=== PATIENT | female | born 1940 | race Caucasian/White ===

== ENCOUNTER → 2018-10-29 | Outpatient (CLI) | payer OTHER ==
[~2018-10-29] MED LIST: IOHEXOL 300 mgI/ML (OMNIPAQUE) 150 ML BTL IV ONE
== END ==
LOC: FIMAGING 10:30
PROVIDERS: ATTEND Internal Medicine
DX: R18.0 Malignant ascites (principal)
CPT/HCPCS: 74177; Q9967; 82565-PO

== ENCOUNTER 2018-11-04 16:48 | Inpatient (IN) | payer OTHER ==
[2018-11-04] MEDS ORDERED: ACETAMINOPHEN 325 MG TAB PO PRN (17:37)
[2018-11-04] MEDS ORDERED: ONDANSETRON DISINTEGRATING 4 MG TAB PO PRN (17:37)
[2018-11-04] MEDS ORDERED: POLYETHYLENE GLYCOL 3350 17 GM PKT PO PRN (18:36)
[2018-11-04] MEDS ORDERED: MAGNESIUM HYDROXIDE 30 ML UDCUP PO PRN (18:36)
[2018-11-04] MEDS ORDERED: LACTULOSE 20 GM/30 ML UDCUP PO PRN (18:36)
[2018-11-04] MEDS ORDERED: BISACODYL 10 MG SUPP PR PRN (18:36)
[2018-11-04] MEDS ORDERED: NS 1,000 ML IV SCH (18:45)
[2018-11-04 18:51] LABS: PLATELET COUNT 385 10^3/uL (150-400)
[2018-11-04 19:00] LABS: INR 0.98 (0.83-1.16); PROTIME(PATIENT) 13.2 SEC (12.0-15.0)
[2018-11-04] MEDS ORDERED: DIAZEPAM 2 MG TAB PO PRN (19:50)
--- NOTE | 2018-11-04 20:00 | PDGENHP ---
History and Physical - Chief Complaint Abdominal distention - History of Present Illness HPI: This is a 78 y/o female with hx of recent diagnosis of ovarian CA w/ involvement of peritoneum presenting as a direct admit from Dr. Cortez's ( oncologist) office for therapeutic paracentesis. 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 After d/c, she f/u'ed with GI Dr. Doss who informed her of the cytology results and she f/u'ed with Dr. Cortez as outpatient who then sent her to be admitted for therapeutic paracentesis. Her abdomen is distended, she is in a great deal of discomfort rating it 20/10. She has not had a BM in 4 days but when she did have a BM, it was "stringy, squiggly." She has difficulty urinating, has to lift her abdomen to urinate. No dysuria. Endorses nausea, no vomiting. Denies SOB or chest pains. She does have occasional palpitations. She is being admitted for management. Past Medical History 1. Hyperlipidemia 2. Hypertension 3. Dx of ovarian CA w/ involvement of peritoneum 4, Macular degeneration 5. PAD 6. Thyroid cyst 7. Thyroid disease Social: Former smoker. No illegal drugs. Drinks a couple glasses of wine/ month. Lives independently in [place]. History Information - Allergies/Home Medication List Allergies/Adverse Reactions: formaldehyde Allergy (Verified 11/04/18 18:31) Iodinated Contrast- Oral and IV Dye Allergy (Verified 11/04/18 18:34) iohexol [From Omnipaque] Allergy (Verified 11/04/18 18:32) phenol [From Chloraseptic] Allergy (Verified 11/04/18 18:33) Sulfa (Sulfonamide Antibiotics) Allergy (Verified 11/04/18 18:31) Home Medications: Aspirin [Aspirin 81mg (*)] 81 mg PO DAILY 11/04/18 [Last Taken 11/04/18] C/E/Zn/Cu/OM3/DHA/EPA/LUT/ZEAX [Preservision Areds 2 Softgel] 1 each PO BID [Last Taken 11/04/18 09:00] Calcium Carb W/Vit D [Calcium Carb W/Vit D 500/200 (*)] 500 mg PO BID 11/04/18 [ Last Taken 11/04/18] Clopidogrel Bisulfate [Plavix (*)] 75 mg PO DAILY 11/04/18 [Last Taken 11/04/18] Diazepam [Valium 2 MG (*)] 2 mg PO DAILY PRN 11/04/18 [Last Taken Unknown] Levothyroxine [Synthroid 50 mcg (*)] 50 mcg PO DAILY06 11/04/18 [Last Taken ] Multivitamins [Multivitamin (*)] 1 each PO DAILY 11/04/18 [Last Taken 11/04/18] Pravastatin Sodium 40 mg PO DAILY 11/04/18 [Last Taken 11/04/18] I have personally reviewed and updated: family history, medical history, social history, surgical history Past Medical History: See HPI list - Surgical History Additional surgical history: See HPI list - Family History Additional family history: ETOH abuse, lung disease, heart disease - Social History Smoking Status: Former smoker Alcohol Use: Occasionally Drug Use: None Review of Systems Review of Systems: ROS: 10pt was reviewed & negative except for what was stated in HPI & below Physical Exam Physical Exam: Lab work and Imaging were reviewed. Case discussed with admitting physician, Dr. Steve Mitchell. Temp Pulse Resp BP Pulse Ox 36.8 C 80 16 145/74 H 94 11/04/18 19:22 11/04/18 19:22 11/04/18 19:22 11/04/18 19:22 11/04/18 19:22 Constitutional: no apparent distress, uncomfortable Eyes: PERRL, anicteric sclera, EOMI Ears, Nose, Mouth, Throat: moist mucous membranes, hearing normal, ears appear normal, no oral mucosal ulcers Cardiovascular: regular rate and rhythym, no murmur, rub, or gallop, No edema Peripheral Pulses: 1+: dorsalis-pedis (R) (Radial 1+), dorsalis-pedis (L) ( Radial 1+) Respiratory: no respiratory distress, no rales or rhonchi, clear to auscultation Gastrointestinal: normoactive bowel sounds, tenderness, guarding, distension Genitourinary: no bladder fullness, no bladder tenderness Skin: warm, normal color, no rashes or abrasions, no fluctuance, no induration, No mottled Musculoskeletal: full muscle strength, no muscle tenderness, normal joint ROM, no joint effusions Neurologic: AAOx3, sensation intact bilaterally, CN II-XII Intact Psychiatric: interacting appropriately, not anxious, not encephalopathic, thought process linear Lymph, Heme, Immunologic: no cervical LAD, no supraclavicular LAD Lab Data & Imaging Review 11/04/18 18:44 11/04/18 18:44 WBC 9.48 10^3/uL (3.80-9.50) 11/04/18 18:44 RBC 4.56 10^6/uL (4.18-5.33) 11/04/18 18:44 Hgb 13.4 g/dL (12.6-16.3) 11/04/18 18:44 Hct 40.3 % (38.0-47.0) 11/04/18 18:44 MCV 88.4 fL (81.5-99.8) 11/04/18 18:44 MCH 29.4 pg (27.9-34.1) 11/04/18 18:44 MCHC 33.3 g/dL (32.4-36.7) 11/04/18 18:44 RDW 12.3 % (11.5-15.2) 11/04/18 18:44 Plt Count 385 10^3/uL (150-400) 11/04/18 18:44 MPV 8.9 fL (8.7-11.7) 11/04/18 18:44 Neut % (Auto) 76.5 % (39.3-74.2) H 11/04/18 18:44 Lymph % (Auto) 12.8 % (15.0-45.0) L 11/04/18 18:44 Taylor % (Auto) 9.5 % (4.5-13.0) 11/04/18 18:44 Eos % (Auto) 0.4 % (0.6-7.6) L 11/04/18 18:44 Baso % (Auto) 0.4 % (0.3-1.7) 11/04/18 18:44 Nucleat RBC Rel Count 0.0 % (0.0-0.2) 11/04/18 18:44 Absolute Neuts (auto) 7.25 10^3/uL (1.70-6.50) H 11/04/18 18:44 Absolute Lymphs (auto) 1.21 10^3/uL (1.00-3.00) 11/04/18 18:44 Absolute Monos (auto) 0.90 10^3/uL (0.30-0.80) H 11/04/18 18:44 Absolute Eos (auto) 0.04 10^3/uL (0.03-0.40) 11/04/18 18:44 Absolute Basos (auto) 0.04 10^3/uL (0.02-0.10) 11/04/18 18:44 Absolute Nucleated RBC 0.00 10^3/uL (0-0.01) 11/04/18 18:44 Immature Gran % 0.4 % (0.0-1.1) 11/04/18 18:44 Immature Gran # 0.04 10^3/uL (0.00-0.10) 11/04/18 18:44 PT 13.2 SEC (12.0-15.0) 11/04/18 18:44 INR 0.98 (0.83-1.16) 11/04/18 18:44 Sodium 123 mEq/L (135-145) L 11/04/18 18:44 Potassium 4.5 mEq/L (3.5-5.2) 11/04/18 18:44 Chloride 91 mEq/L (97-110) L 11/04/18 18:44 Carbon Dioxide 27 mEq/l (22-31) 11/04/18 18:44 Anion Gap 5 mEq/L (6-14) L 11/04/18 18:44 BUN 13 mg/dL (7-23) 11/04/18 18:44 Creatinine 0.5 mg/dL (0.6-1.0) L 11/04/18 18:44 Estimated GFR > 60 11/04/18 18:44 Glucose 100 mg/dL (70-100) 11/04/18 18:44 Calcium 8.4 mg/dL (8.5-10.4) L 11/04/18 18:44 Total Bilirubin 0.8 mg/dL (0.1-1.4) 11/04/18 18:44 AST 33 IU/L (14-46) 11/04/18 18:44 ALT 34 IU/L (9-52) 11/04/18 18:44 Alkaline Phosphatase 66 IU/L (38-126) 11/04/18 18:44 Total Protein 6.1 g/dL (6.3-8.2) L 11/04/18 18:44 Albumin 3.2 g/dL (3.5-5.0) L 11/04/18 18:44 Assessment & Plan Plan: This is a 78 y/o female who has recently been dx'ed with ovarian CA with peritoneum involvement. Plan: -GI and Oncology consulted. Dr. Brower aware of pt and will evaluate pt in AM. Dr. Lr (GI) confirmed she will evaluate pt. -Therapeutic paracentesis in AM. INR is 0.98 -Pain management PO/IVP PRN -Moderate to severe hyponatremia (123). Suspected d/t poor PO intake, however will perform serum osmolality and urine Na. IVF x 3 bags overnight. -Bowel regimen -Bladder scan PRN, if >350 mL, straight cath Diet: Regular, NPO at midnight tonight VTE ppx: SCDs, Lovenox subq Code: Full Dispo: Admit to inpatient
[2018-11-04] MEDS: CALCIUM CARB W/VIT D 500 MG TAB PO SCH (20:30)
[2018-11-04] MEDS: SENNOSIDES/DOCUSATE SODIUM TAB PO SCH (20:30)
[2018-11-04] MEDS: PRESERVISION AREDS2 FORMULA EYE VIT 1 EACH PO SCH (20:30)
[2018-11-04] MEDS: ONDANSETRON 4 MG/2 ML VIAL IVP PRN (20:50)
[2018-11-04] MEDS: HYDROmorphONE/DILAUDID 1 MG/ML INJ IVP PRN (20:51)
--- NOTE | 2018-11-04 20:54 | HOSPPROG ---
Hospitalist Progress Note Assessment/Plan: I have personally seen and evaluated Karyna Cotter. I agree with the assessment and plan as outlined in separate note by Amanda Turcios. Objective: Vital Signs Temp Pulse Resp BP Pulse Ox 36.8 C 80 16 145/74 H 94 11/04/18 19:22 11/04/18 19:22 11/04/18 19:22 11/04/18 19:22 11/04/18 19:22 Laboratory Results 11/04/18 18:44 11/04/18 18:44 11/03/18 11/04/18 11/05/18 05:59 05:59 05:59 Output Total 125 Balance -125 PT 13.2 SEC (12.0-15.0) 11/04/18 18:44 INR 0.98 (0.83-1.16) 11/04/18 18:44 ICD10 Worksheet Patient Problems: Problems Problem Status Onset Ascites Acute - ICD10 Problem Qualifiers (1) Ascites
[2018-11-05] MEDS: LEVOTHYROXINE 50 MCG TAB PO SCH (04:21)
[2018-11-05 04:47] LABS: PLATELET COUNT 373 10^3/uL (150-400)
--- NOTE | 2018-11-05 07:37 | PDCONSULT ---
Ct Mri Technologist Note: [email or web address] p: f: REFERRING PHYSICIAN: I was asked to see the patient in consultation by Dr. Steve Mitchell for a chief complaint of change in stool habits. 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 This is my 1st meeting with the patient. She is in bed lying in position complaining about abdominal pain radiating to her back despite use of the CHIEF AIRLINE RADIO OPERATOR Dilaudid pump. She reports having daily soft bowel movements up until 5 days ago when her bowel movements started to become clumps and then stringy. She has not had any diarrhea or blood in her stool. She reports having a colonoscopy a year ago by a different marketing clerk. She reports a polyp being removed and tattooed. She has not had a paracentesis as of yet and is anticipating this. Her daughter is present in the room at the time of the interview. Overall they are very concerned about drinking the colonic preparation for any potential upcoming colonoscopy. Her 1st meeting with Dr. Cortez of oncology was yesterday and their impression is that chemotherapy will likely be offered for treatment. PAST MEDICAL HISTORY: Recent diagnosis of peritoneal carcinomatosis, follows with Dr. Cortez of oncology, malignant ascites, hyperlipidemia, hypertension, macular degeneration, peripheral. Disease requiring antiplatelet therapy, hypothyroidism PAST SURGICAL HISTORY: Previous paracentesis, other none HOME MEDICATIONS: Multivitamins one each day, diazepam 2 mg daily, calcium carbonate with vitamin D 500 mg twice a day, aspirin 81 mg daily, pravastatin 40 mg daily, Synthroid 50 g daily, Plavix 75 mg daily INPATIENT MEDICATIONS: Aspirin 81 mg daily, when necessary Tylenol, when necessary Dulcolax, calcium carbonate with vitamin D 500 mg twice a day, Plavix 75 mg daily, diazepam 2 mg by mouth daily when necessary, Lovenox 40 mg subcu daily, to lot 8 0.20.4 mg IV every 4 when necessary, lactulose 20 g by mouth 3 times a day when necessary, Synthroid 50 g by mouth daily, milk of magnesia 30 mg by mouth daily when necessary, multivitamins one each day, MiraLAX 17 g by mouth daily, pravastatin 40 mg by mouth daily, senna 1-2 tab scheduled ALLERGIES: Formaldehyde, iodine contrast, phenol, iohexol FAMILY HISTORY: No family history ovarian cancer SOCIAL HISTORY no Tobacco use, though former smoker Alcohol use, drinks a couple glass of wine per month ROS I have performed a comprehensive review of systems, which is negative except for pertinent positives and/or pertinent negatives as noted above in the HPI Physical exam: Vitals 36.4 HR 78 RR 16 BP 169/83 94% on RA CONSTITUTIONAL: alert, unwell appearing, very thin MENTAL STATUS: alert, oriented to person, place and time PSYCH: labile, crying, in position in bed EYES: pupils equal and reactive extra ocular eye movements intact EARS: right and left ear normal NOSE: normal and patent, no erythema, discharge or polyps MOUTH: mucous membranes moist, pharynx normal without lesions, Mallampati I HEAD: normal NECK: supple CHEST: clear to auscultation, no wheezes, rales or rhonchi, symmetric air entry CARDIOVASCULAR: normal rate, regular rhythm, normal S1,S2, no murmurs, rubs, clicks or gallops GASTROINTESTINAL: distended, tense ascites NEUROLOGICAL: alert, oriented, normal speech, no focal findings or movement disorder noted. No asterixis. MUSCULOSKELETAL: no joint tenderness, deformity or swelling SKIN: normal coloration and turgor, no rashes, no suspicious skin lesions CURRENT DATA: I personally reviewed [facility] as well as our [facility] the [facility] database and could not find her recent colonoscopy from this past year, I can only presume this was done through another gastroenterology group LABS: 11/04-11/05/2018 CBC: WBC 9.58 should be 13 platelets 373 INR 0.98 BMP: Sodium 126 potassium 4.6 BUN 12 creatinine 0.5 LFT: TB 0.8 and okay 63 AST 36 ALT 33 albumin 2.9 IMAGING: Date 10/29/2018 CT scan of the abdomen and pelvis with IV contrast, no oral or rectal contrast provided Small-volume ascites is present throughout all 4 quadrants of the lower pelvis, ovaries are normal in size, short segment of the sigmoid colon has concentric nodular thickening into small blind ended sinus tracts, liver is without chronic liver disease, portal vein is patent, no biliary dilatation Impression: 1.small volume peritoneal carcinomatosis and small volume ascites 2 diet normal-sized ovaries, no adnexal mass or clear source for peritoneal carcinomatosis 3.focal colitis versus neoplasm the sigmoid colon with associated blind ended sinus tracts ENDOSCOPY: 2018 colonoscopy by another group (?[facility]) reportedly with a polyp that was removed ASSESSMENT: Karyna Cotter is a 78-year-old female with peritoneal carcinomatosis (ovarian?) presenting with worsening malignant ascites, change in bowel habits, constipation and a CT scan with abnormal thickening of the sigmoid colon. We discussed the benefits and risks of performing a colonoscopy. Overall with a relative recent colonoscopy this past year I do think a 2nd primary cancer is likely. This CT scan finding is probably related bowel involvement from this carcinomatosis. Treatment of the underlying carcinomatosis will probably help with any involvement of the bowel and likely a colonoscopy will not liner roll changer. Additionally the patient is very adverse drinking a colonic preparation and is in a lot of pain. I do think we should focus on symptom management with pain control in context of having a good bowel regimen to help with constipation. RECOMMENDATIONS: -Advance to previous diet -Agree with therapeutic paracentesis -Pain control per primary team -Okay to restart Plavix and Aspirin if not being held for other reasons -Bowel regimen to help with constipation including Miralax 17 grams/8 oz BID scheduled for now and reduce if having good bowel movements -Thank you for this consultation Sincerely, Lis Lr MD [facility]
--- NOTE | 2018-11-05 08:36 | HOSPPROG ---
Hospitalist Progress Note Assessment/Plan: This is a 78 y/o female with hx of recent diagnosis of ovarian CA w/ involvement of peritoneum presenting as a direct admit from Dr. Cortez's ( oncologist) office for therapeutic paracentesis. #Ovarian Ca #Ascites and abd distention #HTN #Hypothyroidism #PAD #Hyponatremia -Likely due to hypovolemia #Sigmoid thickening per CT, consider focal colitis vs neoplasm -Await Colonoscopy per GI Plan: -GI and Oncology consulted. -Await Colonoscopy decision by GI -Therapeutic paracentesis today -Holding Plavix and Aspirin for now -Pain management PO/IVP PRN -Optimize Hydration, needs IVF -Bowel regimen -Bladder scan PRN, if >350 mL, straight cath VTE ppx: SCDs, Lovenox subq Code: Full Diet: NPO until decision about colonoscopy Dispo: cont inpatient Subjective: no cp or sob. still with abd pain Objective: Vital Signs Temp Pulse Resp BP Pulse Ox 36.6 C 79 16 138/71 H 91 L 11/05/18 07:16 11/05/18 07:16 11/05/18 07:16 11/05/18 07:16 11/05/18 07:16 Laboratory Results 11/05/18 04:22 11/05/18 04:22 11/04/18 11/05/18 11/06/18 05:59 05:59 05:59 Intake Total 436 Output Total 750 500 Balance -314 -500 PT 13.2 SEC (12.0-15.0) 11/04/18 18:44 INR 0.98 (0.83-1.16) 11/04/18 18:44 - Physical Exam Constitutional: no apparent distress Eyes: PERRL, EOMI Ears, Nose, Mouth, Throat: dry mucous membranes Cardiovascular: regular rate and rhythym, No edema Respiratory: no respiratory distress, no rales or rhonchi, clear to auscultation Gastrointestinal: normoactive bowel sounds, soft, non-tender abdomen Skin: warm Musculoskeletal: generalized weakness Neurologic: AAOx3 Psychiatric: interacting appropriately, not anxious, not encephalopathic Lymph, Heme, Immunologic: petechiae ICD10 Worksheet Patient Problems: Problems Problem Status Onset Ascites Acute
[2018-11-05] MEDS: ENOXAPARIN 40 MG/0.4 ML SYR SC SCH (08:42)
[2018-11-05] MEDS ORDERED: ASPIRIN 81 MG CHEWABLE TAB PO SCH (09:00)
[2018-11-05] MEDS ORDERED: CLOPIDOGREL BISULFATE 75 MG TAB PO SCH (09:00)
[2018-11-05] MEDS: ONDANSETRON 4 MG/2 ML VIAL IVP PRN (09:05)
[2018-11-05] MEDS: HYDROmorphONE/DILAUDID 1 MG/ML INJ IVP PRN ×2 (09:06→12:16)
[2018-11-05] MEDS: SENNOSIDES/DOCUSATE SODIUM TAB PO SCH ×2 (09:26→21:01)
[2018-11-05] MEDS: PRESERVISION AREDS2 FORMULA EYE VIT 1 EACH PO SCH ×2 (09:26→21:01)
[2018-11-05] MEDS: PRAVASTATIN SODIUM 40 MG TAB PO SCH (09:26)
[2018-11-05] MEDS: CALCIUM CARB W/VIT D 500 MG TAB PO SCH ×2 (09:27→21:01)
[2018-11-05] MEDS: MULTIVITAMINS 1 EACH TAB PO SCH (09:27)
--- NOTE | 2018-11-05 10:19 | ASMTCMCOM ---
CM Note CM Note Notes: Pt is a 78 yo F presents as a direct admit from Dr. Cortez's office for therapeutic paracentesis. Pt has recent of diagnosis of Ovarian cancer with involvement of peritoneum. Pt lives alone in [place]. Discharge needs TBD at this time. CM to follow. Plan:TBD Date Signed: 11/05/2018 10:18 AM Electronically Signed By:JONATHAN Schneider
[2018-11-05] MEDS ORDERED: NS W/ 20 KCl/L 1,000 ML IV SCH (10:30)
--- NOTE | 2018-11-05 12:33 | PDMN ---
Medical Necessity Medical necessity: [facility] Medical Oncology GR yo direct admit for therapeutic paracentesis in setting recent dx ovarian ca. Eval of pt reveals severe pain and hyponatremia Na123. GI and oncology consulted. Pt meets IP criteria for med nec for Oncology w/ severe electrolyte abnormality and w/ severe malignant effusion causing abd pain requiring freq IV opioid admin.
[2018-11-05] MEDS ORDERED: HYDROmorphONE/DILAUDID 1 MG/ML INJ IVP PRN (12:45)
[2018-11-05] MEDS ORDERED: LIDOCAINE 1% 300 MG/30 ML SDV ONE (13:51)
[2018-11-05] MEDS ORDERED: PROMETHAZINE HCL 25 MG/ML INJ IVP PRN (13:53)
[2018-11-05] MEDS: CLOPIDOGREL BISULFATE 75 MG TAB PO SCH (18:34)
[2018-11-05] MEDS: ASPIRIN 81 MG CHEWABLE TAB PO SCH (18:34)
--- NOTE | 2018-11-05 19:41 | PDCONSULT ---
Tree Marker Note: Patient is a 78-year-old female with a recent diagnosis of FIGO stage III serous ovarian cancer admitted for abdominal pain and swelling. Patient reports abdominal swelling and pain has progressively worsened over the last month or so. The symptoms initially took her to see [facility] on 10/24/[address] scan at that time showed some abdominal ascites and moderate pelvic ascites. Paracentesis was performed and it showed malignant cells consistent with high-grade serous carcinoma. She was then referred to gastroenterology the performed another CAT scan performed on 2018 which showed small volume peritoneal carcinomatosis and small volume ascites. She was then referred to Dr. Cortez 09/03/2019 at which point he was having difficulty eating could not poop or pee and had extreme diffuse abdominal pain with radiation to the back. He was socially admitted for symptom control. Past medical history Hypertension Past surgical history: Tonsillectomy Adenoidectomy Partial hysterectomy Breast implants Social history: Patient smokes roughly 8 cigarettes/day for 16 years she quit at age 32. 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 Family History: Mother with breast cancer in her 50s Review of systems: A complete 12 point review of systems was obtained and found to be negative unless indicated in the history of present illness Physical examination: Vital signs reviewed General: Mild distress appearing female nontoxic-appearing HEENT: Pupils equal round reactive to light no scleral icterus or conjunctival pallor is appreciated oral mucosa is moist without any evidence of oral pharyngeal lesions Neck: Supple Cardiovascular: Regular rate and rhythm without rubs thrills gallops or murmurs Chest: Clear to auscultation percussion bilateral posterior lungs Abdomen: Soft, distended, diffusely tender without rebound or guarding, positive fluid pulse-wave Extremities: Warm well perfused 2+ dorsalis pedis and radial pulses bilaterally Neurologic: Cranial nerves II through XII are intact 5 out of 5 upper and lower extremity strength bilaterally Medications and allergies are reviewed in the electronic medical record 11/05/18 04:22 11/05/18 04:22 Total Bilirubin 0.8 mg/dL (0.1-1.4) 11/05/18 04:22 AST 36 IU/L (14-46) 11/05/18 04:22 ALT 33 IU/L (9-52) 11/05/18 04:22 Imaging studies personally reviewed Assessment and plan: Patient is a 78-year-old female with a recent diagnosis of stage III ovarian cancer admitted for symptomatic management of tense ascites. Problem #1 abdominal pain and distention Likely related to accumulation of malignant ascites. Patent has no peritoneal signs nor does she have leukocytosis or systemic symptoms to suggest infection.Patient will have a paracentesis and will evaluate symptoms afterwards. Problem #2 newly diagnosed stage III ovarian cancer with malignant ascites We will arrange for patient to get outpatient carboplatin and paclitaxel presumably in the so-called neoadjuvant setting. She will receive 3 cycles followed by repeat staging and perhaps evaluation by PRINTING ASSISTANT oncology for debulking surgery. Also have patient evaluated by genetic counseling. Agree with gastroenterology that changes on the sigmoid colon likely related to peritoneal implants.
[2018-11-05] MEDS: POLYETHYLENE GLYCOL 3350 17 GM PKT PO SCH (20:59)
[2018-11-05] MEDS: PANTOPRAZOLE SODIUM 40 MG TAB PO SCH (21:01)
[2018-11-06 04:48] LABS: PLATELET COUNT 363 10^3/uL (150-400)
[2018-11-06] MEDS: LEVOTHYROXINE 50 MCG TAB PO SCH (06:30)
[2018-11-06] MEDS: PRAVASTATIN SODIUM 40 MG TAB PO SCH (08:02)
[2018-11-06] MEDS: PRESERVISION AREDS2 FORMULA EYE VIT 1 EACH PO SCH ×2 (08:02→20:15)
[2018-11-06] MEDS: MULTIVITAMINS 1 EACH TAB PO SCH (08:03)
[2018-11-06] MEDS: ASPIRIN 81 MG CHEWABLE TAB PO SCH (08:03)
[2018-11-06] MEDS: PANTOPRAZOLE SODIUM 40 MG TAB PO SCH ×2 (08:03→20:15)
[2018-11-06] MEDS: CALCIUM CARB W/VIT D 500 MG TAB PO SCH ×2 (08:03→20:15)
[2018-11-06] MEDS: SENNOSIDES/DOCUSATE SODIUM TAB PO SCH ×2 (08:04→20:15)
[2018-11-06] MEDS: POLYETHYLENE GLYCOL 3350 17 GM PKT PO SCH ×2 (08:04→20:16)
[2018-11-06] MEDS: CLOPIDOGREL BISULFATE 75 MG TAB PO SCH (08:04)
[2018-11-06] MEDS: ENOXAPARIN 40 MG/0.4 ML SYR SC SCH (08:06)
[2018-11-06] MEDS ORDERED: BISACODYL 10 MG SUPP PR ONE (10:32)
--- NOTE | 2018-11-06 14:03 | ASMTCMCOM ---
CM Note CM Note Notes: Palliative team met with patient and her daughter Tati (by phone). Patient agreed to engage with community palliative care. I sent a referral to [facility]. Other d/c needs TBD; however, patient will likely not have any needs. Case Management will follow. Date Signed: 11/06/2018 02:02 PM Electronically Signed By:Bharati Hernandez RN
[2018-11-06] MEDS ORDERED: LACTULOSE 20 GM/30 ML UDCUP PO ONE (14:30)
--- NOTE | 2018-11-06 16:37 | HOSPPROG ---
Hospitalist Progress Note Assessment/Plan: This is a 78 y/o female with hx of recent diagnosis of ovarian CA w/ involvement of peritoneum presenting as a direct admit from Dr. Cortez's ( oncologist) office for therapeutic paracentesis. #Ovarian Ca #Ascites and abd distention #HTN #Hypothyroidism #PAD #Hyponatremia -Likely due to hypovolemia #Sigmoid thickening per CT, consider focal colitis vs neoplasm -Await Colonoscopy per GI Plan: -GI and Oncology consulting -No colonoscopy needed at this time -She is very frustrated as her abd is distended again. We will obtain an US and if ascites has reaccumulated, we will repeat paracentesis -Plavix and Aspirin have been restarted -hydration is better, repeat labs in a.m. -Stool regimen, needs a bm VTE ppx: SCDs, Lovenox subq Code: Full Dispo: cont inpatient Subjective: reports abd fullness. no cp or sob. no n/v Objective: Vital Signs Temp Pulse Resp BP Pulse Ox 36.7 C 102 H 18 118/59 L 93 11/06/18 12:25 11/06/18 12:25 11/06/18 12:25 11/06/18 12:25 11/06/18 12:25 Laboratory Results 11/06/18 04:32 11/06/18 04:32 11/05/18 11/06/18 11/07/18 05:59 05:59 05:59 Intake Total 436 2383 Output Total 750 8000 Balance -314 -5617 PT 13.2 SEC (12.0-15.0) 11/04/18 18:44 INR 0.98 (0.83-1.16) 11/04/18 18:44 - Physical Exam Constitutional: no apparent distress Eyes: PERRL, EOMI Ears, Nose, Mouth, Throat: moist mucous membranes, hearing normal Cardiovascular: regular rate and rhythym, No edema Respiratory: no respiratory distress, no rales or rhonchi, clear to auscultation Gastrointestinal: distension Skin: warm Neurologic: AAOx3 Psychiatric: interacting appropriately, not anxious, encephalopathic Lymph, Heme, Immunologic: petechiae ICD10 Worksheet Patient Problems: Problems Problem Status Onset Ascites Acute
[2018-11-06] MEDS ORDERED: MAGNESIUM CITRATE 300 ML BOTTLE PO ONE (18:30)
[2018-11-07 04:42] LABS: PLATELET COUNT 380 10^3/uL (150-400)
[2018-11-07 07:37] VITALS: BP 127/62
[2018-11-07] MEDS: LEVOTHYROXINE 50 MCG TAB PO SCH (08:00)
[2018-11-07] MEDS: CALCIUM CARB W/VIT D 500 MG TAB PO SCH (08:29)
[2018-11-07] MEDS: CLOPIDOGREL BISULFATE 75 MG TAB PO SCH (08:29)
[2018-11-07] MEDS: PRESERVISION AREDS2 FORMULA EYE VIT 1 EACH PO SCH (08:29)
[2018-11-07] MEDS: MULTIVITAMINS 1 EACH TAB PO SCH (08:29)
[2018-11-07] MEDS: PANTOPRAZOLE SODIUM 40 MG TAB PO SCH (08:29)
[2018-11-07] MEDS: ASPIRIN 81 MG CHEWABLE TAB PO SCH (08:29)
[2018-11-07] MEDS: PRAVASTATIN SODIUM 40 MG TAB PO SCH (08:29)
[2018-11-07] MEDS: ENOXAPARIN 40 MG/0.4 ML SYR SC SCH (08:30)
[2018-11-07] MEDS: HYDROCODONE/APAP 5/325 TAB PO PRN ×2 (09:37→15:22)
[2018-11-07] MEDS: POLYETHYLENE GLYCOL 3350 17 GM PKT PO SCH (10:07)
[2018-11-07] MEDS: SENNOSIDES/DOCUSATE SODIUM TAB PO SCH (10:07)
--- NOTE | 2018-11-07 10:59 | SOAPPROG ---
SOAP Progress Note Assessment/Plan: Assessment and plan: Patient is a 78-year-old female with a recent diagnosis of stage III ovarian cancer admitted for symptomatic management of tense ascites. Problem #1 abdominal pain and distention Likely related to accumulation of malignant ascites. Resolved with paracentesis. 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 She will receive 3 cycles followed by repeat staging and perhaps evaluation by [facility] oncology for debulking surgery. Also have patient evaluated by genetic counseling. Agree with gastroenterology that changes on the sigmoid colon likely related to peritoneal implants. -Will arrange this as outpatient in [place] Subjective: Patient desperately wants to have a BM. Abdominal pain is resolved, no fevers chills or sweats. Objective: Vital Signs Temp Pulse Resp BP Pulse Ox 36.7 C 97 16 127/62 H 90 L 11/07/18 07:36 11/07/18 07:36 11/07/18 07:36 11/07/18 07:36 11/07/18 07:36 Laboratory Results 11/07/18 04:18 11/07/18 04:18 11/06/18 11/07/18 11/08/18 05:59 05:59 05:59 Intake Total 2383 1000 Output Total 8000 350 Balance -5617 650 PT 13.2 SEC (12.0-15.0) 11/04/18 18:44 INR 0.98 (0.83-1.16) 11/04/18 18:44 Physical examination: Vital signs reviewed General: No distress, non toxic appearing female HEENT: Pupils equal round reactive to light no scleral icterus or conjunctival pallor is appreciated oral mucosa is moist without any evidence of oral pharyngeal lesions Neck: Supple Cardiovascular: Regular rate and rhythm without rubs thrills gallops or murmurs Chest: Clear to auscultation percussion bilateral posterior lungs Abdomen: Soft, mildly distended, nontender without rebound or guarding, Extremities: Warm well perfused 2+ dorsalis pedis and radial pulses bilaterally Neurologic: Cranial nerves II through XII are intact grossly ICD10 Worksheet Patient Problems: Problems Problem Status Onset Ascites Acute
--- NOTE | 2018-11-07 14:10 | PDDCSUM ---
Discharge Summary Discharge Summary: HPI/Hospital course: This is a 78 y/o female with hx of recent diagnosis of ovarian CA w/ involvement of peritoneum presenting as a direct admit from Dr. Cortez's ( oncologist) office for therapeutic paracentesis. She was evaluated by both Onc and GI. She will start Chemotherapy next week with Dr. Cortez It was felt that she had constipation and she was given bowel softners and had a bowel movement she had a paracentesis with removal of over 2 Liters she was started on a PPI for GERD She was evaluated by GI, Dr. Eason, and it was felt that a colonoscopy was not needed and if there is oncological process related mets to the colon that this would be also treated with the chemo. In addition the pt was noted to be very apprehensive to taking the GoLytely. At the time of discharge she is not having any abd pain She still has mild hyponatremia and this will need to be checked at follow up DDX: #Ovarian Ca #Ascites and abd distention #HTN #Hypothyroidism #PAD #Hyponatremia -Likely due to hypovolemia. improved #Sigmoid thickening per CT, consider focal colitis vs neoplasm -Await Colonoscopy per GI Exam: NAD AAO RRR CTA B S/NT/ND NO EDEMA MEDS: SEE MED REC TOTAL TIME SPENT ON D/C INCLUDING MEETINGS WITH ONCOLOGY, [facility] [place] 45 MINS
--- NOTE | 2018-11-07 15:35 | ASMTDCNOTE ---
Case Management Discharge Discharge Order Complete? Answers: Yes Patient to Obtain Answers: via Family Medications Transportation Arranged Answers: Family/Friends Discharge Comments Notes: CM met with patient, Jo Mejia director of resource development with [facility], and daughter Tati. Patient is scheduled for outpatient treatment to begin on Saturday with [facility]. Daughter Tati to transport patient home and support with recommended follow up. IM delivered, signed for receipt, and placed in back of chart. CM available to support if any additional CM needs arise. Date Signed: 11/07/2018 03:35 PM Electronically Signed By:Johana Zayas
--- NOTE | 2018-11-10 10:10 | ASDISCHSUM ---
Discharge Information Plan Status:Home with No Needs Medically Cleared to Leave:11/06/2018 Discharge Date:11/07/2018 03:45 PM CM D/C Disposition:Home, Routine, Self-Care ADT D/C Disposition:Home, Routine, Self-Care Projected Discharge Date:11/08/2018 11:00 AM Transportation at D/C:Family Discharge Delay Reason: Follow-Up Date:11/08/2018 11:00 AM Discharge Slot:2 - 12:01 pm - 18:00 pm Final Diagnosis:Ascites Placement Information Referral Type:Palliative Care Referral ID:[id number] Provider Name:[facility] Address 1:[address] Phone Number: Address 2: Fax Number: City:[place] Selection Factors: State:[place] Patient Contact Information Contact Name:MIA Relationship:Daughter Address: Work Phone: City: [facility] Phone: [facility] Code: Email: Financial Information Financial Class:Medicare Advantage Plans Primary Plan Desc:[employer] MED[employer]ARE [employer] COMPLETE Primary Plan Number:[id number] Secondary Plan Desc: Secondary Plan Number: Assessment Information [facility] CM Progress Note CM Note CM Note Notes: Pt is a 78 yo F presents as a direct admit from Dr. Cortez's office for therapeutic paracentesis. Pt has recent of diagnosis of Ovarian cancer with involvement of peritoneum. Pt lives alone in [place]. Discharge needs TBD at this time. CM to follow. Plan:TBD Date Signed: 11/05/2018 10:18 AM Electronically Signed By:JONATHAN Schneider [facility] CM Progress Note CM Note CM Note Notes: Palliative team met with patient and her daughter Tati (by phone). Patient agreed to engage with community palliative care. I sent a referral to [facility]. Other d/c needs TBD; however, patient will likely not have any needs. Case Management will follow. Date Signed: 11/06/2018 02:02 PM Electronically Signed By:Bharati Hernandez RN Case Management Discharge Plan Note Case Management Discharge Discharge Order Complete? Answers: Yes Patient to Obtain Answers: via Family Medications Transportation Arranged Answers: Family/Friends Discharge Comments Notes: CM met with patient, Jo Mejia RN Navigator with [facility], and rojelio Tati. Patient is scheduled for outpatient treatment to begin on Saturday with [facility]. Daughter Tati to transport patient home and support with recommended follow up. IM delivered, signed for receipt, and placed in back of chart. CM available to support if any additional CM needs arise. Date Signed: 11/07/2018 03:35 PM Electronically Signed By:Johana Zayas Intervention Information Intervention Type:*IM-Signed Date of Service:11/07/2018 03:30 PM Patient Type:Inpatient Staff Member:Johana Zayas Hours: Discipline: Severity: Comment:IM delivered, signed for receipt and p laced in back of chart.
== END 2018-11-07 15:45 | disposition home or self-care (01) | DRG 375 ==
LOC: F1N 16:56
PROVIDERS: ADMIT Internal Medicine; ATTEND Family Medicine
PROC: 0W9G3ZZ Drainage of Peritoneal Cavity, Percutaneous Approach (ICD-10-PCS; principal; 2018-11-05)
DX: C78.6 Secondary malignant neoplasm of retroperitoneum and peritoneum (principal); C56.9 Malignant neoplasm of unspecified ovary; R18.0 Malignant ascites; E78.5 Hyperlipidemia, unspecified; I10 Essential (primary) hypertension; H35.30 Unspecified macular degeneration; I73.9 Peripheral vascular disease, unspecified; E87.1 Hypo-osmolality and hyponatremia; E03.9 Hypothyroidism, unspecified; Z79.82 Long term (current) use of aspirin; Z79.02 Long term (current) use of antithrombotics/antiplatelets
CPT/HCPCS: 97161-GP; J1170; J1650; J2405

== ENCOUNTER → 2018-11-11 | Outpatient (CLI) | payer OTHER ==
[~2018-11-11] MED LIST changes: -IOHEXOL 300 mgI/ML (OMNIPAQUE) 150 ML BTL IV ONE; +LIDOCAINE 1% 300 MG/30 ML SDV ONE
== END ==
LOC: FIMAGING 08:22
PROVIDERS: ATTEND Nurse Practitioner
DX: C48.2 Malignant neoplasm of peritoneum, unspecified (principal); R18.8 Other ascites